=== PATIENT | female | born 2000 | race Caucasian/White ===

== ENCOUNTER 2024-10-20 06:53 | Inpatient (IN) ==
--- NOTE | 2024-10-11 15:43 | Anesthesiology Consultation ---
Date of Service October 11, 2024 Assessment & Plan (1) Encounter for pre-operative examination: Chart Review Chart Review: entry driver operator initiated Pt would like per OB records -BSG to anesthesiologist/OB discretion (gestational DM) -Infectious Disease screening: Per PAT nursing assessment on 10/11/24. No known infectious disease contacts in past 10 days or current infectious disease symptoms. No recent travel outside the country. History Surgery Operation Date: 10/20/24 07:30 Proposed Procedures p Section (Delivery of Baby Through Abdominal Incision) - Maynor Marin MD, FACOG Height/Weight Height: 5 ft 3 in Weight: 63.503 kg Allergies Allergy/AdvReac Type Severity Reaction Status Date / Time No Known Allergies Allergy Verified 10/11/24 14:59 Medications Home Medications Medication Instructions Recorded Confirmed Last Taken PNV no.[id number] 1 cap PO QAM 03/08/24 10/11/24 Unknown [ Gummies] acetone (urine) test (Ketone Urine #50 ea 09/01/24 10/04/24 Unknown Test strips) blood sugar diagnostic (OneTouch #150 ea 09/01/24 10/04/24 Unknown Verio test strips) blood-glucose meter (OneTouch #1 ea 09/01/24 10/04/24 Unknown Verio Flex Meter) lancets 33 gauge (OneTouch Delica #150 ea 09/01/24 10/04/24 Unknown Plus Lancet) omeprazole 20 mg capsule,delayed 20 mg PO QAM 10/11/24 10/11/24 Unknown release Past Medical History Medical History Adverse effect of anesthesia "Sometimes I need extra anesthesia. I did with my last at [facility]. I could still feel them poking me. I think they gave me extra in my IV. Even with other procedures, I have needed extra." as per patient Anemia no blood transfusion/iron infusion Chlamydia hx - Gestational diabetes Heart burn Lichen sclerosus "I had a doctor tell me I had it, then I went to [facility] for a second opinion and did an actual biopsy and told me I don't have that." Retained placenta hx Past Family History Family History Mother Diverticulitis Grandfather (Maternal) Myocardial infarction Denies family history of Ovarian cancer Breast cancer Colorectal cancer Past Surgical History Surgical History History of esophagogastroduodenoscopy (EGD) History of tonsillectomy History of wisdom tooth extraction S/P section x1 S/P dilatation and curettage Social History Smoking Status: Never smoker Do You Dip or Chew Tobacco: No Hx Alcohol Use: No Hx Substance Use: No substance use type: does not use Lab Results Anesthesia Preop Results Results Anesthesia Widget: WBC 12.89 K/ul (4.8-10.8) H 08/23/24 Hgb 9.9 g/dl (12.0-16.0) L 08/23/24 Hct 31.3 % (37.0-47.0) L 08/23/24 Plt 307 K/uL (130-400) 08/23/24 POC Glucose 73 mg/dl (70-99) 08/22/24 Testing Laboratory Results Anemia- stable from 07/2024
--- NOTE | 2024-10-20 08:13 | History & Physical Report ---
Date of Service October 20, 2024 Assessment & Plan (1) Encounter for pre-operative examination: Plan: Repeat section. The patient was counseled to the nature of the procedure including alternatives such as labor. Risks were discussed including bleeding infection injury to bowel bladder ureter vessels and even baby. The risks of internal organ injury were discussed as being higher with prior sections. Deep Vein Thrombosis, pulmonary embolus and breakdown of the incision discussed. Deep vein thrombosis pulmonary embolus hernia and failure of the incision to heal were discussed Patient verbalized understanding of this and was given ample time to ask questions Admission and Anticipated Discharge Date Admission Date: October 20, 2024 History of Present Illness Primary Care Provider: NO PCP SHIRLEY Calculator Estimated Delivery Date Method Current WG Current Estimate 10/17/24 Ultrasound #1 40w 2d : 4 Full term: 1 Premature: 0 Total Number of Induced Abortions: 0 Total Number of Spontaneous Abortions: 2 Ectopics: 0 Multiple births: 0 Number of Living Children: 1 and Delivery Plans Previous C/S SCHEDULED FOR 10/20/[address] GARCIA Hoping , consent signed. GBS POS - treat in labor Hepatitis B-not immune GDM *Begin monthly Growth US's @24wks H&H 30.5/10.0 on 07/26/24 Repeat 1 month - repeat stable 9.9. Allergies Allergy/AdvReac Type Severity Reaction Status Date / Time No Known Allergies Allergy Verified 10/19/24 09:07 Home Medications Medication Instructions Recorded Confirmed Type PNV no.[id number] 1 cap PO QAM 03/08/24 10/19/24 History [ Gummies] acetone (urine) test (Ketone Urine #50 ea 09/01/24 10/19/24 Rx Test strips) blood sugar diagnostic (OneTouch #150 ea 09/01/24 10/19/24 Rx Verio test strips) blood-glucose meter (OneTouch #1 ea 09/01/24 10/19/24 Rx Verio Flex Meter) lancets 33 gauge (OneTouch Delica #150 ea 09/01/24 10/19/24 Rx Plus Lancet) omeprazole 20 mg capsule,delayed 20 mg PO QAM 10/11/24 10/19/24 History release Patient History Medical History Adverse effect of anesthesia "Sometimes I need extra anesthesia. I did with my last at [facility]. I could still feel them poking me. I think they gave me extra in my IV. Even with other procedures, I have needed extra." as per patient Anemia no blood transfusion/iron infusion Chlamydia hx - Gestational diabetes Heart burn Lichen sclerosus "I had a doctor tell me I had it, then I went to [facility] for a second opinion and did an actual biopsy and told me I don't have that." Retained placenta hx Surgical History History of esophagogastroduodenoscopy (EGD) History of tonsillectomy History of wisdom tooth extraction S/P section x1 S/P dilatation and curettage Family History Mother Diverticulitis Grandfather (Maternal) Myocardial infarction Denies family history of Ovarian cancer Breast cancer Colorectal cancer Social History (Updated 03/08/24 @ 11:04 by Ambar Rivera) Smoking Status: Never smoker Second Hand Exposure: No; Do You Dip or Chew Tobacco: No; Tobacco Cessation Education Requested by Patient: No Hx Alcohol Use: No Hx Substance Use: No Preferred Language: Sami Communication Ability: Effective Radio Communication Coordinator Required: No Beliefs That Will Affect Care: None marital status: Single marital status details: Olivier Tracy (19) [phone] Current Living Situation: Family Current Living Situation Comment: lives with Fob, child, cats-fob changing litter current occupational status: employed current occupation: [employer] Other Information That Helps Us Care for You: No Feels Safe at Home: Yes Safety Concerns: Feels Safe At This Time Assistive Devices: Glasses Physical Exam Constitutional: WD/WN, vitals as above well developed and well nourished Respiratory: normal respiratory effort, lungs clear to auscultation normal respiratory effort Cardiovascular: RRR, no murmur, no edema Gastrointestinal (Abdomen): normal bowel sounds, soft, nontender, no hepatosplenomegaly Results & Data Vital Signs (Past 12 Hours) Vital Signs Temp Pulse Resp BP 10/20/24 07:04 98.2 F 73 22 134/73 Coding Level of Care Code None Diagnoses Encounter for pre-operative examination Z01.818
--- NOTE | 2024-10-20 09:30 | Operative Report ---
Post Operative Report Pre & Post Diagnosis Operation Date: 10/20/24 08:30 Pre-Op Diagnosis: History of Section Post-Op Diagnosis: History of Section I identified the patient and participated in the time-out.: Yes Procedure Operation Date: 10/20/24 08:30 Actual Procedures p Section - Maynor Marin MD, FACOG Surgeon Maynor Marin MD, FACOG Stonemason Supervisor . Quantitative Blood Loss (QBL) 187 Findings Consistent with Post-Op Diagnosis Specimens Cord blood Description of Procedure Regional anesthetic had been given by anesthesia patient was prepped and draped with a leftward tilt preoperative antibiotics had been given in appropriate timing by anesthesiology. Once the prep was allowed to fully dry timeout was performed. Pickups with teeth were used to test the incision area was found to be adequate for incision as the patient did not feel sharp pain. Scalpel was used to make a Pfannenstiel incision on the lower abdomen. We then cut through the subcutaneous fat down to the level of the anterior rectus sheath fascia this was cut in the midline and then extended laterally with the curved Savage scissors. At this stage we then placed 2 Willy clamps on the anterior aspect of the fascia. Using the curved Savage's we are able to dissect the fascia superiorly away from the rectus muscles. Care was taken to maintain hemostasis. Willy clamps were then placed to the inferior aspect of the anterior sheath of the fascia. Fascia was then dissected away from the rectus muscles inferiorly towards the pubic bone. A Willy was then placed in the midline both inferiorly and superiorly. This was to allow exposure by retraction rectus muscles were in the midline with were then able to cut through the peritoneum and then enter the peritoneal cavity. Opening was enlarged to allow exposure of the peritoneal cavity both superiorly and inferiorly. Once adequate space was obtained a bladder retractor was placed to expose the lower segment Metzenbaums were used to dissect the bladder flap inferiorly away from the uterus. This was done sharply bladder retractor was then repositioned to expose the lower segment of the uterus Fresh scalpel was used to make a low transverse incision on the uterus. Uterus was then entered bluntly with the operators finger, membranes ruptured and the opening was enlarged using the operators fingers bluntly pulling superiorly and inferiorly to allow exposure. Baby was delivered by first flexion of the head elevation of the head out of the pelvis and then pressure by the pharmacy assistant on the maternal abdomen. Baby's head was then delivered mouth and then nares were suctioned and then using gentle traction the baby was fully delivered. Live vigorous infant. Fluid was clear cord clamped and cut cord gases obtained cord blood obtained baby handed to pediatrics. Placenta removed was removed with traction we ensure the entire placenta was removed with a moist lap sponge into the uterus Uterus was then exteriorized. IV Pitocin had been started by anesthesia tone improved there were no extensions the uterus was then closed using 0 Monocryl in a 2 layer closure the first layer closed in a running locked fashion from left to right and then a second closure from left to right in a running nonlocked fashion. At this stage hemostasis was excellent. Uterus was placed back in the peritoneal cavity with suction irrigation out and inspection of the uterus at this stage revealed excellent hemostasis Retractors were removed urine color was clear at this stage of the case we inspected the rectus muscles they were hemostatic fascia was closed with 0 Vicryl subcutaneous fat was irrigated and closed with 3-0 Vicryl skin closed with 4-0 subcuticular Monocryl Findings the uterus and adnexa were normal the uterine lower segment was not overly thin QBL 187 mL I attest to the content of the Intraoperative Record and any orders documented therein. Any exceptions are noted below. OB Procedure Charges 10795
[2024-10-20 10:22] LABS: BUN Creatinine Ratio 14.3 (10-20); Calcium 7.6 mg/dl (8.6-10.3); Creatinine Clr Calc Pharmacy 158.4 ml/min; Potassium 3.5 mmol/L (3.5-5.1)
--- NOTE | 2024-10-20 10:29 | Anesthesiology Progress Note ---
Date of Service October 20, 2024 Anesthesia Post Procedure Vital Signs Vital Signs: Temp Pulse Resp BP Pulse Ox 10/20/24 10:25 97 10/20/24 10:25 77 10/20/24 10:25 94 10/20/24 10:25 73 10/20/24 10:20 100 10/20/24 10:20 74 10/20/24 10:20 110/68 10/20/24 10:15 100 10/20/24 10:15 77 10/20/24 10:10 100 10/20/24 10:10 69 10/20/24 10:10 66 10/20/24 10:10 106/64 10/20/24 10:05 96 10/20/24 10:05 68 10/20/24 10:00 100 10/20/24 10:00 75 10/20/24 10:00 106/65 10/20/24 09:55 99 10/20/24 09:55 83 10/20/24 09:51 71 10/20/24 09:51 104/62 10/20/24 09:50 100 10/20/24 09:50 70 10/20/24 09:45 98 10/20/24 09:45 76 10/20/24 09:40 100 10/20/24 09:40 88 10/20/24 09:35 100 10/20/24 09:35 85 10/20/24 09:33 88 10/20/24 09:33 107/53 L 10/20/24 09:30 100 10/20/24 09:30 93 H 10/20/24 07:33 36.8 C 22 10/20/24 07:04 36.8 C 73 22 134/73 Transfer of Care Handoff Completed per policy Notes Mental Status: alert / awake / arousable and participated in evaluation Patient Amnestic to Procedure: Yes Nausea / Vomiting: adequately controlled Pain: adequately controlled Airway Patency, RR, SpO2: stable & adequate BP & HR: stable & adequate Hydration State: stable & adequate Anesthetic Complications: no major complications apparent and Pt Satisfied with anesthetic care
[2024-10-21 07:02] LABS: Basophils # (auto) 0.03 K/uL (0.00-0.20); Basophils % (auto) 0.3 %; Eosinophils # (auto) 0.16 K/uL (0.00-0.50); Eosinophils % (auto) 1.4 %; Hematocrit (blood only) 25.3 % (37.0-47.0); Hemoglobin 7.7 g/dl (12.0-16.0); Immature Granulocytes # (auto) 0.15 K/uL (0.01-0.20); Immature Granulocytes % (auto) 1.3 %; Lymphocytes # (auto) 2.43 K/uL (1.20-3.40); Lymphocytes % (auto) 21.8 %; Mean Corpuscular Hemoglobin 24.3 pg (25.0-34.0); Mean Corpuscular Hgb Conc 30.4 g/dL (32.0-36.0); Mean Corpuscular Volume 79.8 fL (80.0-100.0); Mean Platelet Volume 10.1 fL (9.4-12.4); Monocytes # (auto) 0.94 K/uL (0.11-0.59); Monocytes % (auto) 8.4 %; Neutrophils # (auto) 7.46 K/uL (1.40-6.50); Neutrophils % (auto) 66.8 %; Platelet Count 256 K/uL (130-400); RDW Standard Deviation 43.8 fL (36.4-46.3); Red Blood Count 3.17 M/uL (4.20-5.40); White Blood Count 11.17 K/ul (4.8-10.8)
--- NOTE | 2024-10-21 08:10 | Obstetrical Progress Note ---
Date of Service October 21, 2024 Assessment & Plan (1) state: (2) S/P section: Plan Chad is a 24yo , day 1 s/p repeat . Continue monitoring Hgb as it is 7.7 this AM, though asymptomatic other than pain. Doing well. Continue routine pp care. Encourage ambulation. Pain control with toradol, then ibuprofen Admission and Anticipated Discharge Date Admission Date: October 20, 2024 Supervising Physician Co-Signing Physician Notes Patient seen with resident and agree with the above findings and plan. Routine care Subjective Chad is a 24yo , day 1 s/p repeat . Feels well, some soreness around incision site Ambulation: yes Void: urinating, no BM yet Gas: yes Lochia: small Diet: tolerating well Feeding plan: breast Sx: none other than improving soreness Physical Exam Physical Exam: Gen: no acute distress CV: RRR, no m/r/g Resp: clear to auscultation b/l GI/Abd: +BS, fundus firm at lvl of umbilicus, mild tenderness to palpation around incision site but no seepage or swelling LE: trace edema, nontender to palpation Results & Data Vital Signs (Past 12 Hours) Vital Signs Temp Pulse Resp BP Pulse Ox O2 Del Method 10/21/24 04:00 36.7 C 82 16 112/76 Room Air 10/21/24 02:00 16 98 10/21/24 01:00 16 97 10/21/24 00:45 36.9 C 70 103/65 98 Room Air 10/21/24 00:00 16 98 10/20/24 23:00 16 97 10/20/24 22:00 18 98 10/20/24 21:00 16 96 Resident Activity Tracking Resident Involvement: Resident Care Provided Care Provided: OB Delivery
[2024-10-21 10:15] LABS: Polychromasia 1+; Tear Drop Cells 1+
[2024-10-22 06:57] LABS: Hematocrit (blood only) 28.5 % (37.0-47.0); Hemoglobin 8.9 g/dl (12.0-16.0)
--- NOTE | 2024-10-22 08:54 | Obstetrical Progress Note ---
Date of Service October 22, 2024 Assessment & Plan (1) state: Day 2 status post section. Patient doing well meeting all post milestones. Continue routine care Subjective Ambulation: ambulating normally Voiding: no voiding problems Passing Gas:: Yes Diet Tolerance:: regular diet Lochia:: Moderate Physical Exam Constitutional WD/WN, vitals as above Respiratory normal respiratory effort; no respiratory distress and no labored breathing Cardiovascular Extremities: no calf tenderness Gastrointestinal (Abdomen) Inspection/Auscultation: abdomen normal to inspection; abdomen not distended Percussion/Palpation: abdomen soft; abdomen nontender, no guarding and abdomen not rigid Genitourinary OB Exam Abdomen: + fundal height Fundus: + firm and + relation to umbilicus (Below); not tender or not boggy Results & Data Vital Signs (Past 12 Hours) Vital Signs Temp Pulse Resp BP Pulse Ox O2 Del Method 10/22/24 07:45 Room Air 10/22/24 07:45 36.8 C 72 18 115/73 99 Room Air 10/22/24 01:55 36.7 C 66 16 106/76 Room Air
[2024-10-22 19:55] VITALS: RESP 16
--- NOTE | 2024-10-23 07:13 | Obstetrical Progress Note ---
Date of Service October 23, 2024 Assessment & Plan (1) state: (2) S/P section: Plan Chad is a 24yo , day 3 s/p repeat . Hgb improving, up to 8.9 from 7.7, asymptomatic. Doing well. Continue routine pp care. Encourage ambulation. Pain control ibuprofen, oxycodone sent home as needed. Home today, followup in 6wks Admission and Anticipated Discharge Date Admission Date: October 20, 2024 Supervising Physician Co-Signing Physician Notes Patient seen with resident and agree with the above findings and plan. Patient doing well and stable for discharge Subjective Chad is a 24yo , day 3 s/p repeat . Feels well, minimal incision site soreness Ambulation: yes Void: urinating, had BM Gas: yes Lochia: small Diet: tolerating well Feeding plan: breast, going well Sx: none other than improving soreness Physical Exam Physical Exam: Gen: no acute distress CV: RRR, no m/r/g Resp: clear to auscultation b/l GI/Abd: +BS, fundus firm 1cm inf to umbilicus, mild tenderness to palpation around incision site but no seepage or swelling LE: no edema, nontender to palpation Results & Data Vital Signs (Past 12 Hours) Vital Signs Temp Pulse Resp BP O2 Del Method 10/23/24 00:00 36.6 C 71 16 101/78 Room Air 10/22/24 20:00 Room Air 10/22/24 19:55 36.8 C 71 16 106/65 Room Air Resident Activity Tracking Resident Involvement: Resident Care Provided Care Provided: OB Delivery
[2024-10-23 07:15] VITALS: BP 106/71; TEMP 97.7; O2SAT 98
[2024-10-23 10:20] VITALS: PULSE 82
--- NOTE | 2024-10-25 16:02 | Discharge Summary ---
Date of Service October 25, 2024 Admission HPI Per Admitting Provider SHIRLEY Calculator Estimated Delivery Date Method Current WG Current Estimate 10/17/24 Ultrasound #1 40w 2d : 4 Full term: 1 Premature: 0 Total Number of Induced Abortions: 0 Total Number of Spontaneous Abortions: 2 Ectopics: 0 Multiple births: 0 Number of Living Children: 1 and Delivery Plans Previous C/S SCHEDULED FOR 10/20/[address] GARCIA Hoping , consent signed. GBS POS - treat in labor Hepatitis B-not immune GDM *Begin monthly Growth US's @24wks H&H 30.5/10.0 on 07/26/24 Repeat 1 month - repeat stable 9.9. Admission Exam (Per Admitting) Constitutional WD/WN, vitals as above well developed and well nourished Respiratory normal respiratory effort, lungs clear to auscultation normal respiratory effort Cardiovascular RRR, no murmur, no edema Gastrointestinal (Abdomen) normal bowel sounds, soft, nontender, no hepatosplenomegaly Discharge Data Consultations 10/20/24 07:34 Consult Anesthesiology Stat Procedures Performed Operation Date: 10/20/24 08:30 Actual Procedures p Section - Maynor Garcia MD, FACOG Hospital Course (1) state: (2) S/P section: Plan [place] is a 24yo , day 3 s/p repeat . Hgb improving, up to 8.9 from 7.7, asymptomatic. Doing well. Continue routine pp care. Encourage ambulation. Pain control ibuprofen, oxycodone sent home as needed. Home today, followup in 6wks Supervising Physician Co-Signing Physician Notes Patient seen with resident and agree with the above findings and plan. Patient doing well and stable for discharge Coding Level of Care Code None Diagnoses state Z39.2 S/P section Z98.891
== END 2024-10-23 13:07 | disposition home or self-care (01) ==
LOC: 4S1 06:53 → EDSTATUS 07:30 → 4E2 12:47